=== PATIENT | female | born 1980 | race Caucasian/White ===

== ENCOUNTER 2019-09-03 14:28 | Inpatient (IN) | payer MEDICAID ==
[~2019-09-03] VITALS: Ht 160 cm; Wt 95.0 kg
[~2019-09-03 14:28] MED LIST: BIOT1TAB2 PO; CYAN500T63 PO; GABA-341 PO; LEVO25TA2 PO; NORCO10T PO; PYRI250T8 PO; VENL75CA61 PO
[2019-09-03 14:58] LABS: CLARITY,URINE CLOUDY (Clear); COLOR,URINE YELLOW (Yellow); GLUCOSE, URINE NEGATIVE (Neg); KETONES,URINE 15 mg/dl (Neg); LEUKOCYTE ESTERASE ,URINE TRACE (Neg); NITRITES, URINE POSITIVE (Neg); OCCULT BLOOD,URINE LARGE (Neg); PROTEIN,URINE NEGATIVE (Neg); URINE HCG NEGATIVE (NEG)
[2019-09-03 14:59] LABS: UA COLLECTION TYPE CLN CATCH MIDSTREAM
[2019-09-03 15:03] LABS: BACTERIA,URINE 2+ /HPF (Neg); MUCUS STRANDS FEW /LPF (Neg); RBC,URINE 50-100 /HPF (0-2); SQUAMOUS EPITHELIAL CELL,UR MANY /LPF (FEW)
[2019-09-03 15:53] LABS: BASOPHILS % (AUTO) 0.3 % (0-1); EOSINOPHILS # (AUTO) 0.1 X10'3 (0-0.9); HEMATOCRIT 44.8 % (35.0-45.0); HEMOGLOBIN 15.6 g/dl (12.0-16.0); LYMPHOCYTES # (AUTO) 2.2 X10'3 (1.1-4.8); MEAN CORPUSCULAR HEMOGLOBIN 32.5 PG (27.0-31.0); MEAN CORPUSCULAR HGB CONC 34.8 g/dL (33.0-36.5); MEAN CORPUSCULAR VOLUME 93.2 FL (78-98); MEAN PLATELET VOLUME 7.7 FL (7.4-10.4); MONOCYTES # (AUTO) 0.5 X10'3 (0-0.9); MONOCYTES % (AUTO) 4.9 % (2-12); NEUTROPHILS # (AUTO) 8.2 X10'3 (1.8-7.7); NEUTROPHILS % (AUTO) 73.8 % (42-75); PLATELET COUNT 270 X10'3 (140-440); RED BLOOD COUNT 4.81 X10'6 (4.20-5.60); RED CELL DISTRIBUTION WIDTH 13.1 % (11.5-14.5); WHITE BLOOD COUNT 11.1 X10'3 (4.5-11.0)
[2019-09-03 16:06] LABS: ALANINE AMINOTRANSFERASE 23 U/L (12-78); ALBUMIN 3.9 G/DL (3.4-5.0); ALKALINE PHOSPHATASE 71 IU/L (46-116); ANION GAP 5 (8-16); ASPARTATE AMINO TRANSFERASE 16 U/L (10-37); BILIRUBIN,TOTAL 0.8 MG/DL (0.1-1.0); BLOOD UREA NITROGEN 10 MG/DL (7-18); BUN/CREATININE RATIO 12.7 (6.6-38.0); CALCIUM 8.7 MG/DL (8.5-10.1); CHLORIDE 102 MMOL/L (99-107); CREATININE 0.79 MG/DL (0.40-0.90); GLUCOSE 82 MG/DL (70-104); LIPASE 109 U/L (73-393); POTASSIUM 3.6 MMOL/L (3.5-5.1); SODIUM 137 MMOL/L (135-145); TOTAL PROTEIN 7.7 G/DL (6.4-8.2); eGFR 82 ML/MIN
[2019-09-03] MEDS ORDERED: morphine 4 MG/ML inj SYRINge IV ONE (16:20)
[2019-09-03] MEDS ORDERED: normal saline 1000ML IV soln IVB ONE (16:20)
[2019-09-03] MEDS ORDERED: CefTRIAXone 2gm/D5W 50ml 50 ML IV ONE (16:20)
[2019-09-03] MEDS ORDERED: ondansetron/PF 4mg/2ml inj IV ONE (16:20)
--- NOTE | 2019-09-03 17:01 | NUR ---
assisting RN with pt care, pt is resting quietly on gurney, waiting for bed assignment
--- NOTE | 2019-09-03 17:36 | NUR ---
RELIEVING RN FOR LUNCH, PT IS RESTING QUIETLY ON GURNEY, SAID RUQ ABD PAIN IS DOWN TO 6/10, RESP EVEN AND UNLABORED, SKIN P/W/D
[2019-09-03] MEDS ORDERED: potassium CL 10mEq/100ml bag 100 ML IV PRN ×2 (18:10)
[2019-09-03] MEDS ORDERED: magnesium 2GM in 50ml NS 50 ML IV PRN (18:10)
[2019-09-03] MEDS ORDERED: mag hydrox/Alum hydrox/simeth 30ml oral suspension PO PRN (18:10)
[2019-09-03] MEDS ORDERED: diphenhydrAMINE 25mg capsule PO PRN (18:10)
[2019-09-03] MEDS ORDERED: magnesium 4gm in 100ml NS 100 ML IV PRN (18:10)
[2019-09-03] MEDS ORDERED: acetaminophen 325mg tablet PO PRN ×2 (18:10)
[2019-09-03] MEDS ORDERED: acetaminophen 650mg rectal suppository RC PRN (18:10)
[2019-09-03] MEDS ORDERED: bisacodyl 10mg suppository rectal RC PRN (18:10)
[2019-09-03] MEDS ORDERED: magnesium hydroxide 30ml (MOM) UD suspension PO PRN (18:10)
[2019-09-03] MEDS ORDERED: HYDROmorphone inj. 0.5 MG/0.5 ML DISP.SYRIN IV PRN (18:10)
[2019-09-03] MEDS ORDERED: potassium Cl 20 mEq SR tablet PO PRN (18:10)
[2019-09-03] MEDS ORDERED: diphenhydrAMINE 50 mg/ml inj IV PRN (18:10)
[2019-09-03] MEDS ORDERED: magnesium Cl slow-release 64mg tablet PO PRN (18:10)
[2019-09-03] MEDS: HYDROmorphone 1 mg/ml syringe IV PRN ×2 (19:03→23:14)
[2019-09-03] MEDS: normal saline 1000ml 1,000 ML IV SCH (19:03)
[2019-09-03] MEDS: K and/or MAG REPLACEMENT MC SCH (19:03)
[2019-09-03] MEDS: ondansetron/PF 4mg/2ml inj IV PRN (19:08)
[2019-09-03 19:09] LABS: PARTIAL THROMBOPLASTIN TIME 27 SECONDS (22-32)
--- NOTE | 2019-09-03 19:34 | NUR ---
PT HAS FAMILY MEMBER AT BEDSIDE. PT REPORTED 9 OUT OF 10 PAIN TO UPPER RIGHT ABD AND STATES THE OPAIN MEDS GIVEN EARLIER HAVE WORK OFF. GIVEN DILAUDID 1 MG IV AND ZOFRAN 4 MG IV. NS AT 100 INFUSING FOR MIVF. GIVEN JELLO AND JUICE, OK FOR CLEARS, WILL BE NPO AT MS. AWAITING IPA. VSS.
[2019-09-03] MEDS ORDERED: NO HOME MEDS (19:42)
[2019-09-03] MEDS: docusate sod 100mg capsule PO SCH (20:00)
--- NOTE | 2019-09-03 21:34 | NUR ---
Patient in room [facility] 340. I have received report from Patti, ED RN and had the opportunity to ask questions and assume patient care.
[2019-09-03 22:15] VITALS: BP 115/63
[2019-09-04] VITALS (20 sets, daily range): BP systolic 93–138; BP diastolic 49–99
[2019-09-04] MEDS: temazepam 15mg capsule PO PRN ×2 (00:47→20:54)
[2019-09-04] MEDS: HYDROmorphone 1 mg/ml syringe IV PRN ×4 (03:18→17:13)
[2019-09-04] MEDS: ondansetron/PF 4mg/2ml inj IV PRN ×3 (03:23→19:29)
[2019-09-04] MEDS: normal saline 1000ml 1,000 ML IV SCH ×3 (05:24→17:10)
--- NOTE | 2019-09-04 06:05 | NUR ---
Patient in room [facility] 340. I have received report from MISA Mckeon and had the opportunity to ask questions and assume patient care.
[2019-09-04 06:24] LABS: BASOPHILS % (AUTO) 0.2 % (0-1); EOSINOPHILS # (AUTO) 0.2 X10'3 (0-0.9); EOSINOPHILS % (AUTO) 2.3 % (0-6); HEMATOCRIT 37.7 % (35.0-45.0); HEMOGLOBIN 13.1 g/dl (12.0-16.0); LYMPHOCYTES # (AUTO) 2.9 X10'3 (1.1-4.8); LYMPHOCYTES % (AUTO) 42.8 % (21-51); MEAN CORPUSCULAR HGB CONC 34.8 g/dL (33.0-36.5); MEAN CORPUSCULAR VOLUME 94.8 FL (78-98); MEAN PLATELET VOLUME 7.9 FL (7.4-10.4); MONOCYTES # (AUTO) 0.7 X10'3 (0-0.9); NEUTROPHILS % (AUTO) 44.7 % (42-75); PLATELET COUNT 214 X10'3 (140-440); RED BLOOD COUNT 3.97 X10'6 (4.20-5.60); RED CELL DISTRIBUTION WIDTH 13.3 % (11.5-14.5); WHITE BLOOD COUNT 6.7 X10'3 (4.5-11.0)
[2019-09-04 06:45] LABS: ALANINE AMINOTRANSFERASE 18 U/L (12-78); ALBUMIN/GLOBULIN RATIO 0.9 (1.1-1.5); ALKALINE PHOSPHATASE 53 IU/L (46-116); ANION GAP 6 (8-16); ASPARTATE AMINO TRANSFERASE 11 U/L (10-37); BILIRUBIN,TOTAL 0.3 MG/DL (0.1-1.0); BLOOD UREA NITROGEN 7 MG/DL (7-18); BUN/CREATININE RATIO 11.1 (6.6-38.0); CALCIUM 7.5 MG/DL (8.5-10.1); CHLORIDE 106 MMOL/L (99-107); CHOL/HDL RATIO 2.2 (0.00-4.99); CHOLESTEROL 114 MG/DL (0-200); CREATININE 0.63 MG/DL (0.40-0.90); GLUCOSE 82 MG/DL (70-104); HDL CHOLESTEROL 51 MG/DL (35-60); LDL CHOLESTEROL 52 MG/DL (50-100); MAGNESIUM 1.7 MG/DL (1.5-2.4); POTASSIUM 3.7 MMOL/L (3.5-5.1); SODIUM 140 MMOL/L (135-145); TOTAL CARBON DIOXIDE 27.8 MMOL/L (24-32); TOTAL PROTEIN 6.2 G/DL (6.4-8.2); TRIGLYCERIDES 61 MG/DL (20-135); eGFR > 90 ML/MIN
--- NOTE | 2019-09-04 06:58 | NUR ---
Problems reprioritized. Patient report given, questions answered & plan of care reviewed with MISA Carver.
[2019-09-04] MEDS: K and/or MAG REPLACEMENT MC SCH ×2 (07:04→20:00)
[2019-09-04] MEDS ORDERED: ceFAZolin 1000mg inj ONE (07:18)
[2019-09-04] MEDS ORDERED: BUPIVAcaine/PF 2.5 mg/ml (0.25%) 30ml vial ONE (07:18)
[2019-09-04] MEDS: ceFAZolin 1GM/D5W- ADD-VANTAGE 50 ML IV SCH (07:29)
[2019-09-04] MEDS ORDERED: LIDOcaine 1% 30ml preserv. free vial ONE (07:36)
--- NOTE | 2019-09-04 07:50 | NUR ---
Pt off the floor to OR
[2019-09-04] MEDS ORDERED: fentaNYL/PF 50MCG/1 ML 2ML syringe ONE ×2 (07:56→08:32)
[2019-09-04] MEDS ORDERED: midazolam 2 mg/2 ml injection ONE (07:56)
[2019-09-04] MEDS ORDERED: sevoflurane 250ml liquid IH ONE (07:57)
[2019-09-04] MEDS: CefTRIAXone/D5W-Rocephin 1gm 50 ML IV SCH (08:00)
[2019-09-04] MEDS: docusate sod 100mg capsule PO SCH ×2 (08:00→19:29)
[2019-09-04] MEDS ORDERED: ringers solution, lacted 1,000 ML IV SCH (08:26)
[2019-09-04] MEDS ORDERED: proCHLORperazine 10 MG/2 ml inj IV PRN (08:30)
[2019-09-04] MEDS ORDERED: ondansetron/PF 4mg/2ml inj IV PRN (08:30)
[2019-09-04] MEDS ORDERED: morphine 4 MG/ML inj SYRINge IV PRN ×2 (08:30)
[2019-09-04] MEDS ORDERED: meperidine/PF 25mg/ml syringe IV PRN ×3 (08:30)
[2019-09-04] MEDS ORDERED: dexamethasone sod phosphate 4mg/ml inj. ONE (08:34)
[2019-09-04] MEDS ORDERED: propofol inj 20 ML IV ONE (08:34)
[2019-09-04] MEDS ORDERED: neostigmine methylsulfate 1 MG/ML 10ml vial ONE (08:34)
[2019-09-04] MEDS ORDERED: LIDOcaine 2% (20mg/ml) 5ml vial ONE (08:34)
[2019-09-04] MEDS ORDERED: rocuronium 10mg/ml inj IV ONE (08:34)
[2019-09-04] MEDS ORDERED: ondansetron/PF 4mg/2ml inj ONE (08:34)
[2019-09-04] MEDS ORDERED: glycopyrrolate 0.2mg/ml inj ONE (08:34)
[2019-09-04] MEDS ORDERED: meperidine/PF 50mg/ml syringe ONE (09:04)
--- NOTE | 2019-09-04 09:05 | NUR ---
Received from OR via BED, accompanied by Anesthesiologist BRANDAN and report given by Anesthesiolgist. PT DROWSY, OXYGENATING WELL ON 10 LPM O2 VIA MASK, NO RESP DISTRESS NOTED. C/O NAUSEA, MEDICATED WITH 2.5 MG OF IV COMPAZINE, PER ANESTHESIA ORDERS. PT WAS GIVEN DEMEROL BY ANESTHESIA, RECD 30 MG OF TORADOL IV. 4 LG BANDAIDS TO ABD TROCAR SITES, CDI. VSS.
[2019-09-04] MEDS ORDERED: ketorolac trometh. 30mg/ml inj. ONE (09:14)
[2019-09-04] MEDS ORDERED: HYDROcodone/acetaminophen 5mg/325mg tablet PO PRN (09:15)
--- NOTE | 2019-09-04 10:00 | NUR ---
Pt returned to room 340A from PACU
--- NOTE | 2019-09-04 10:05 | NUR ---
Report called to receiving nurse. Transferred via BED Belongings IN PT ROOM. PAIN LEVEL IS SLOWLY TRENDING DOWN AFTER MEDS GIVEN IN PACU. EPISODIC NAUSEA, TOLERATING A FEW ICE CHIPS. VSS. ENCOURAGED PT TO COUGH AND DB. ADVISED HER TO AMBULATE SOON SHE IS ABLE THIS WILL HELP ALOT WITH HER PAIN, SHE AGREES TO PLAN. TRNASFERRED BACK TO 3 SURG IN STABLE CONDITION. Special Issues communicated to receiving nurse.
--- NOTE | 2019-09-04 18:05 | NUR ---
Problems reprioritized. Patient report given, questions answered & plan of care reviewed with Azul Lee RN.
--- NOTE | 2019-09-04 18:10 | NUR ---
Patient in room [facility] 340. I have received report from MISA Carver and had the opportunity to ask questions and assume patient care.
[2019-09-04] MEDS: HYDROcodone/acetaminophen 10/325mg tab PO PRN (19:31)
[2019-09-04] MEDS: nicotine 14mg patch - 24hr TD SCH (21:52)
[2019-09-05] VITALS: BP 106/58
[2019-09-05] MEDS: HYDROcodone/acetaminophen 10/325mg tab PO PRN ×3 (02:18→10:08)
[2019-09-05] MEDS: normal saline 1000ml 1,000 ML IV SCH (02:32)
[2019-09-05] MEDS: HYDROmorphone 1 mg/ml syringe IV PRN (03:11)
--- NOTE | 2019-09-05 06:05 | NUR ---
Patient in room [facility] 340. I have received report from Azul Lee RN and had the opportunity to ask questions and assume patient care.
--- NOTE | 2019-09-05 06:19 | NUR ---
Problems reprioritized. Patient report given, questions answered & plan of care reviewed with MISA Carver.
[2019-09-05 06:30] VITALS: BP 115/71
[2019-09-05 06:41] LABS: BASOPHILS # (AUTO) 0.1 X10'3 (0-0.2); BASOPHILS % (AUTO) 0.5 % (0-1); EOSINOPHILS % (AUTO) 0.4 % (0-6); HEMOGLOBIN 12.7 g/dl (12.0-16.0); LYMPHOCYTES # (AUTO) 2.2 X10'3 (1.1-4.8); LYMPHOCYTES % (AUTO) 22.1 % (21-51); MEAN CORPUSCULAR HGB CONC 35.3 g/dL (33.0-36.5); MEAN CORPUSCULAR VOLUME 93.7 FL (78-98); MEAN PLATELET VOLUME 8.5 FL (7.4-10.4); MONOCYTES # (AUTO) 0.5 X10'3 (0-0.9); MONOCYTES % (AUTO) 5.3 % (2-12); NEUTROPHILS # (AUTO) 7.2 X10'3 (1.8-7.7); NEUTROPHILS % (AUTO) 71.7 % (42-75); PLATELET COUNT 219 X10'3 (140-440); RED BLOOD COUNT 3.85 X10'6 (4.20-5.60); RED CELL DISTRIBUTION WIDTH 13.2 % (11.5-14.5)
[2019-09-05 07:00] LABS: ALANINE AMINOTRANSFERASE 26 U/L (12-78); ALBUMIN 2.7 G/DL (3.4-5.0); ALBUMIN/GLOBULIN RATIO 0.9 (1.1-1.5); ALKALINE PHOSPHATASE 55 IU/L (46-116); ANION GAP 8 (8-16); ASPARTATE AMINO TRANSFERASE 23 U/L (10-37); BILIRUBIN,TOTAL 0.3 MG/DL (0.1-1.0); BLOOD UREA NITROGEN 4 MG/DL (7-18); BUN/CREATININE RATIO 6.9 (6.6-38.0); CALCIUM 7.6 MG/DL (8.5-10.1); CHLORIDE 108 MMOL/L (99-107); CREATININE 0.58 MG/DL (0.40-0.90); GLUCOSE 94 MG/DL (70-104); MAGNESIUM 1.6 MG/DL (1.5-2.4); POTASSIUM 3.2 MMOL/L (3.5-5.1); SODIUM 139 MMOL/L (135-145); TOTAL CARBON DIOXIDE 23.4 MMOL/L (24-32); TOTAL PROTEIN 5.7 G/DL (6.4-8.2); eGFR > 90 ML/MIN
[2019-09-05] MEDS: ceFAZolin 1GM/D5W- ADD-VANTAGE 50 ML IV SCH (07:05)
[2019-09-05] MEDS: docusate sod 100mg capsule PO SCH (07:05)
[2019-09-05] MEDS: nicotine 14mg patch - 24hr TD SCH (07:05)
[2019-09-05] MEDS: potassium Cl 20 mEq SR tablet PO PRN ×2 (07:15→10:47)
[2019-09-05] MEDS: CefTRIAXone/D5W-Rocephin 1gm 50 ML IV SCH (08:05)
[2019-09-05] MEDS: K and/or MAG REPLACEMENT MC SCH (08:05)
[2019-09-05 11:00] VITALS: BP 120/66
[2019-09-05] MEDS ORDERED: HYDR-4353 PO (11:14)
[2019-09-05] MEDS: ondansetron/PF 4mg/2ml inj IV PRN (11:19)
--- NOTE | 2019-09-05 13:20 | NUR ---
DC inst provided to pt. IV DC'd, tip intact. All belongings sent w/pt. WC to front lobby.
== END 2019-09-05 13:29 | disposition home or self-care (01) | DRG 263 ==
LOC: ER 14:29 → CANBEDREQ 16:46 → ED HOLD 18:06 → SUR 3N 21:59
PROVIDERS: ADMIT Family Medicine; ATTEND Family Medicine
PROC: 0FT44ZZ Resection of Gallbladder, Percutaneous Endoscopic Approach (ICD-10-PCS; principal; 2019-09-04 07:57)
DX: K80.12 Calculus of gallbladder with acute and chronic cholecystitis without obstruction (principal); E03.9 Hypothyroidism, unspecified; E87.6 Hypokalemia; F17.200 Nicotine dependence, unspecified, uncomplicated; K44.9 Diaphragmatic hernia without obstruction or gangrene; N63.0 Unspecified lump in unspecified breast; Z80.3 Family history of malignant neoplasm of breast; Z80.49 Family history of malignant neoplasm of other genital organs; Z82.49 Family history of ischemic heart disease and other diseases of the circulatory system; Z85.41 Personal history of malignant neoplasm of cervix uteri; Z92.3 Personal history of irradiation; Z88.1 Allergy status to other antibiotic agents; Z88.8 Allergy status to other drugs, medicaments and biological substances; Z79.899 Other long term (current) drug therapy
CPT/HCPCS: 36415; 80053; 80061; 81001; 81025; 82948; 83690; 83735; 85025; 85610; 85730; 87081; 96365; 96375; 99285; A4215; A4618; A7000; G0378; J0690; J0696; J0780; J1100; J1170; J1885; J2001; J2175; J2250; J2270; J2405; J2704; J2710; J3010; J3490; J7030; J7120

== ENCOUNTER 2019-12-08 05:30 | Day surgery (SDC) | payer MEDICAID ==
[2019-12-05 16:31] LABS: BASOPHILS % (AUTO) 0.3 % (0-1); EOSINOPHILS # (AUTO) 0.1 X10'3 (0-0.9); EOSINOPHILS % (AUTO) 1.2 % (0-6); LYMPHOCYTES # (AUTO) 3.8 X10'3 (1.1-4.8); LYMPHOCYTES % (AUTO) 33.6 % (21-51); MEAN CORPUSCULAR HEMOGLOBIN 31.5 PG (27.0-31.0); MEAN CORPUSCULAR HGB CONC 34.1 g/dL (33.0-36.5); MEAN CORPUSCULAR VOLUME 92.3 FL (78-98); MEAN PLATELET VOLUME 8.1 FL (7.4-10.4); MONOCYTES # (AUTO) 0.6 X10'3 (0-0.9); MONOCYTES % (AUTO) 5.2 % (2-12); NEUTROPHILS # (AUTO) 6.7 X10'3 (1.8-7.7); NEUTROPHILS % (AUTO) 59.7 % (42-75); PRE OP HEMATOCRIT 43.7 % (35.0-45.0); PRE OP HEMOGLOBIN 14.9 g/dL (12.0-16.0); PRE OP PLATELET COUNT 288 X10'3 (140-440); RED BLOOD COUNT 4.73 X10'6 (4.20-5.60); RED CELL DISTRIBUTION WIDTH 13.1 % (11.5-14.5)
[2019-12-05 16:32] LABS: CLARITY,URINE SLIGHTLY CLOUDY (Clear); COLOR,URINE YELLOW (Yellow); GLUCOSE, URINE NEGATIVE (Neg); KETONES,URINE TRACE mg/dl (Neg); LEUKOCYTE ESTERASE ,URINE NEGATIVE (Neg); NITRITES, URINE NEGATIVE (Neg); OCCULT BLOOD,URINE LARGE (Neg); PH,URINE 5.5 (4.8-8.0); PROTEIN,URINE NEGATIVE (Neg); UROBILINOGEN,URINE 0.2 E.U/dL (0.2-1.0)
[2019-12-05 16:34] LABS: UA COLLECTION TYPE CLN CATCH MIDSTREAM
[2019-12-05 16:40] LABS: MUCUS STRANDS MANY /LPF (Neg); SQUAMOUS EPITHELIAL CELL,UR MANY /LPF (FEW)
[2019-12-05 16:42] LABS: BACTERIA,URINE 2+ /HPF (Neg); WBC,URINE 0-4 /HPF (0-4)
[2019-12-05 16:42] LABS: PRE OP PROTIME 10.1 SECONDS (9.0-12.0)
[2019-12-05 16:43] LABS: ALKALINE PHOSPHATASE 69 IU/L (46-116); BLOOD UREA NITROGEN 12 MG/DL (7-18); BUN/CREATININE RATIO 16.7 (6.6-38.0); CALCIUM 9.1 MG/DL (8.5-10.1); CHLORIDE 106 MMOL/L (99-107); CREATININE 0.72 MG/DL (0.40-0.90); PRE OP ALT 16 U/L (30-65); PRE OP ANION GAP 8 (8-16); PRE OP AST 18 U/L (10-37); PRE OP BILIRUB, TOTAL 0.5 MG/DL (0.0-1.0); PRE OP GLUCOSE 96 MG/DL (70-104); PRE OP POTASSIUM 3.9 MMOL/L (3.4-5.1); PRE OP SODIUM 141 MMOL/L (135-145); TOTAL CARBON DIOXIDE 27.5 MMOL/L (24-32); TOTAL PROTEIN 8.1 G/DL (6.4-8.2); eGFR > 90 ML/MIN
[2019-12-05 17:05] LABS: HCG SERUM QL NEGATIVE
[2019-12-08] VITALS (27 sets, daily range): BP systolic 96–138; BP diastolic 51–82
[~2019-12-08] VITALS: Ht 160 cm; Wt 102.0 kg
[~2019-12-08 05:30] MED LIST changes: -BIOT1TAB2 PO; -CYAN500T63 PO; -GABA-341 PO; +HYDR-4353 PO; -LEVO25TA2 PO; -NORCO10T PO; -PYRI250T8 PO; -VENL75CA61 PO; +ceFOXitin 2 GM ADDvantage bag 100 ML IV ONE; +famotidine 20mg tablet PO ONE
[2019-12-08] MEDS: ringers solution, lacted 1,000 ML IV SCH ×5 (06:30→22:10)
[2019-12-08] MEDS ORDERED: NO HOME MEDS (06:34)
[2019-12-08] MEDS ORDERED: clindamycin phosphate 40gm vag cream ONE (06:47)
[2019-12-08] MEDS ORDERED: vasoPRESSIN 20 units/ml inj. ONE (06:47)
[2019-12-08] MEDS ORDERED: BUPIVAcaine/PF 2.5 mg/ml (0.25%) 30ml vial ONE (06:58)
[2019-12-08] MEDS ORDERED: neomy sulf/polymyxin B sulf. GU irrigation 1ml amp IR ONE (07:14)
[2019-12-08] MEDS ORDERED: rocuronium 10mg/ml inj IV ONE (07:21)
[2019-12-08] MEDS ORDERED: midazolam 2 mg/2 ml injection ONE (07:21)
[2019-12-08] MEDS ORDERED: fentaNYL /PF 50mcg/ml 5ml ampule ONE (07:21)
[2019-12-08] MEDS ORDERED: propofol inj 20 ML IV ONE (07:21)
[2019-12-08] MEDS ORDERED: ringers solution, lacted 1,000 ML IV SCH (08:28)
[2019-12-08] MEDS ORDERED: proCHLORperazine 10 MG/2 ml inj IV PRN (08:30)
[2019-12-08] MEDS ORDERED: meperidine/PF 25mg/ml syringe IV PRN ×2 (08:30)
[2019-12-08] MEDS ORDERED: morphine 2 MG/ML inj. syringe IV PRN (08:30)
[2019-12-08] MEDS ORDERED: ondansetron/PF 4mg/2ml inj IV PRN ×2 (08:30→09:10)
[2019-12-08] MEDS ORDERED: acetaminophen 1,000mg/100ml IV 100 ML IV ONE (08:54)
[2019-12-08] MEDS ORDERED: dexamethasone sod phosphate 4mg/ml inj. ONE (08:54)
[2019-12-08] MEDS ORDERED: ondansetron/PF 4mg/2ml inj ONE (08:55)
[2019-12-08] MEDS ORDERED: neostigmine methylsulfate 1 MG/ML 10ml vial ONE (09:08)
[2019-12-08] MEDS ORDERED: glycopyrrolate 0.2mg/ml inj ONE (09:08)
[2019-12-08] MEDS ORDERED: LORazepam 2 mg/ml vial IV PRN (09:10)
[2019-12-08] MEDS ORDERED: metoclopramide 5 mg/ml inj IV PRN (09:10)
[2019-12-08] MEDS ORDERED: normal saline 500ml IV soln 500 ML IV PRN (09:10)
[2019-12-08] MEDS ORDERED: magnesium hydroxide 30ml (MOM) UD suspension PO PRN (09:10)
[2019-12-08] MEDS ORDERED: diphenhydrAMINE 50 mg/ml inj IV PRN (09:10)
[2019-12-08] MEDS ORDERED: HYDROcodone/acetaminophen 10/325mg tab PO PRN ×2 (09:10)
[2019-12-08] MEDS ORDERED: temazepam 15mg capsule PO PRN (09:10)
--- NOTE | 2019-12-08 09:26 | NUR ---
Received from OR via BED, accompanied by Anesthesiologist DR DOOLEY and report given by Anesthesiologist. PT DROWSY, APPROPRIATE, C/O ABDOMINAL PAIN, ABDOMEN W/2 LAP SITES W/DERMABOND, CDI, AIDEE PAD IN PLACE CDI, WHALEN CATHETER TO GRAVITY DRAINAGE W/YELLOW URINE IN DRAINAGE TUBE. Addendum: 12/08/19 at 1003 by Estella Mckee RN Amended: Links added.
[2019-12-08] MEDS: meperidine/PF 25mg/ml syringe IV PRN ×4 (09:36→11:03)
[2019-12-08] MEDS: ketorolac trometh. 30mg/ml inj. IV PRN ×4 (09:39→22:10)
[2019-12-08] MEDS: morphine 4 MG/ML inj SYRINge IV PRN ×3 (10:30→11:40)
--- NOTE | 2019-12-08 10:55 | NUR ---
PT CONTINUES C/O LOWER ABD PAIN, STATES SHE FEELS LIKE SHE NEEDS TO PEE, BLADDER SCANNED FOR 2 ML, UNABLE TO PALPATE BLADDER, 50 ML IN WHALEN DRAINAGE BAG. CALL INTO DR OLIVA, UPDATED, ORDERS FOR A STANDARD DILAUDID CADD. Addendum: 12/08/19 at 1057 by Estella Mckee RN Amended: Links added.
[2019-12-08] MEDS: HYDROmorphone/NS 1 mg/ml CADD 50 ML IV SCH ×8 (11:00→23:00)
--- NOTE | 2019-12-08 12:14 | NUR ---
Patient in room . I have received report from Estella BYNUM in recovery room and had the opportunity to ask questions and assume patient care. Estella stated pt is very painful and she is waiting for a CADD pump for pt. Also pt is having trouble voiding even though she has a Gonzalez cath.
--- NOTE | 2019-12-08 12:16 | NUR ---
PT PAIN SLOWLY IMPROVING, Report called to receiving nurse. Transferred via BED, A BAG OF PERSONAL Belongings SENT W/PT TO ROOM 346A, S/O AT BEDSIDE, RECEIVING RN NOTIFIED OF PTS ARRIVAL. Special Issues communicated to receiving nurse. YES. Addendum: 12/08/19 at 1229 by Estella Mckee RN Amended: Links added.
--- NOTE | 2019-12-08 12:30 | NUR ---
Received Pt via dami bed. Pt A & O x4, pt states she is very painful, feeling like her bladder is full and cannot urinate. Pt has out put of 50mls in Gonzalez bag. Pt accompanied by . Belongings on pt's closet.
[2019-12-08] MEDS: nicotine 14mg patch - 24hr TD SCH (13:35)
[2019-12-08] MEDS: simethicone 80mg chew tab PO SCH ×2 (13:35→19:34)
--- NOTE | 2019-12-08 18:16 | NUR ---
Problems reprioritized. Patient report given, questions answered & plan of care reviewed with Corinna Weinstein Rn.
--- NOTE | 2019-12-08 18:30 | NUR ---
Patient in room [facility] 346. I have received report from EDGAR BYNUM and had the opportunity to ask questions and assume patient care.
[2019-12-08] MEDS: docusate sod 100mg capsule PO SCH (19:34)
[2019-12-09] VITALS: BP 96/45
[2019-12-09] MEDS: HYDROmorphone/NS 1 mg/ml CADD 50 ML IV SCH ×4 (01:00→07:00)
[2019-12-09 05:21] LABS: BASOPHILS # (AUTO) 0.1 X10'3 (0-0.2); BASOPHILS % (AUTO) 0.4 % (0-1); EOSINOPHILS % (AUTO) 0.1 % (0-6); HEMATOCRIT 38.4 % (35.0-45.0); HEMOGLOBIN 13.3 g/dl (12.0-16.0); LYMPHOCYTES % (AUTO) 19.8 % (21-51); MEAN CORPUSCULAR HEMOGLOBIN 32.2 PG (27.0-31.0); MEAN CORPUSCULAR HGB CONC 34.5 g/dL (33.0-36.5); MEAN CORPUSCULAR VOLUME 93.4 FL (78-98); MEAN PLATELET VOLUME 8.4 FL (7.4-10.4); MONOCYTES # (AUTO) 0.8 X10'3 (0-0.9); MONOCYTES % (AUTO) 5.2 % (2-12); NEUTROPHILS # (AUTO) 11.4 X10'3 (1.8-7.7); NEUTROPHILS % (AUTO) 74.5 % (42-75); PLATELET COUNT 256 X10'3 (140-440); RED BLOOD COUNT 4.11 X10'6 (4.20-5.60); RED CELL DISTRIBUTION WIDTH 13.3 % (11.5-14.5); WHITE BLOOD COUNT 15.2 X10'3 (4.5-11.0)
[2019-12-09 05:29] LABS: ANION GAP 8 (8-16); BLOOD UREA NITROGEN 5 MG/DL (7-18); BUN/CREATININE RATIO 8.8 (6.6-38.0); CALCIUM 8.3 MG/DL (8.5-10.1); CHLORIDE 106 MMOL/L (99-107); CREATININE 0.57 MG/DL (0.40-0.90); GLUCOSE 97 MG/DL (70-104); POTASSIUM 3.7 MMOL/L (3.5-5.1); SODIUM 139 MMOL/L (135-145); TOTAL CARBON DIOXIDE 25.3 MMOL/L (24-32); eGFR > 90 ML/MIN
[2019-12-09] MEDS: ringers solution, lacted 1,000 ML IV SCH (05:29)
--- NOTE | 2019-12-09 06:07 | NUR ---
Problems reprioritized. Patient report given, questions answered & plan of care reviewed with LUIS BYNUM.
--- NOTE | 2019-12-09 06:07 | NUR ---
Patient in room [facility] 346. I have received report from Corinna Weinstein RN and had the opportunity to ask questions and assume patient care.
[2019-12-09 06:55] VITALS: BP 97/48
[2019-12-09] MEDS ORDERED: CADD PCA waste documentation MC SCH (07:15)
[2019-12-09] MEDS ORDERED: enoxaparin 40mg/0.4ml syringe SQ SCH (08:00)
[2019-12-09] MEDS: nicotine 14mg patch - 24hr TD SCH (08:00)
[2019-12-09] MEDS: docusate sod 100mg capsule PO SCH (08:36)
[2019-12-09] MEDS: simethicone 80mg chew tab PO SCH (08:36)
[2019-12-09] MEDS: ketorolac trometh. 30mg/ml inj. IV PRN (08:36)
--- NOTE | 2019-12-09 11:21 | NUR ---
Patient was complaining of lower abdominal pain that only had minimal relief with [place]. Patient was bladder scanned to ensure that her bladder wasn't too full causing the pain. The Bladder scan only showed 50ml of urine in her bladder.
[2019-12-09 11:56] VITALS: BP 98/43
--- NOTE | 2019-12-09 12:04 | NUR ---
Patient discharged home via significant other and taken from unit via wheelchair with x1 staff. Patient alert and oriented at time of discharge and in slight discomfort. Patient stated feeling well enough to leave. PIV removed with cannula intact. Patient and significant other were both informed of discharge instructions and stated an understanding of this. Both stated that much of the instructions were discussed previously with Dr. Lauren. Patient also stated that she was given a prescription for medications via Dr. Lauren's office and had already picked up the medications.
== END 2019-12-09 12:00 | disposition home or self-care (01) ==
LOC: PAS 05:30 → SUR 3N 09:10 → PAS 12-09 12:00
PROVIDERS: ATTEND Obstetrics & Gynecology Obstetrics
DX: N92.1 Excessive and frequent menstruation with irregular cycle (principal); N80.0 Endometriosis of uterus; N88.8 Other specified noninflammatory disorders of cervix uteri; D25.9 Leiomyoma of uterus, unspecified; E66.9 Obesity, unspecified; Z68.39 Body mass index [BMI] 39.0-39.9, adult; F17.290 Nicotine dependence, other tobacco product, uncomplicated; Z98.51 Tubal ligation status; Z98.890 Other specified postprocedural states; Z88.1 Allergy status to other antibiotic agents; F41.9 Anxiety disorder, unspecified; M19.90 Unspecified osteoarthritis, unspecified site; Z79.899 Other long term (current) drug therapy; Z83.3 Family history of diabetes mellitus; Z80.42 Family history of malignant neoplasm of prostate; Z82.49 Family history of ischemic heart disease and other diseases of the circulatory system; Z80.49 Family history of malignant neoplasm of other genital organs
CPT/HCPCS: 36415; 58552; 71046; 80048; 80053; 81001; 82948; 84703; 85025; 85610; 85730; 86885; 86900; 86901; 87081; J0131; J0694; J1100; J1170; J1885; J2060; J2175; J2250; J2270; J2405; J2704; J2710; J3010; J3490; J7120; A4314; A4618; A7000; G0378; J1650

== ENCOUNTER 2022-11-11 13:14 | Emergency (ER) | payer MEDICAID ==
[~2022-11-11] VITALS: Ht 160 cm; Wt 90.9 kg
[~2022-11-11 13:14] MED LIST changes: -HYDR-4353 PO; +NO HOME MEDS; -ceFOXitin 2 GM ADDvantage bag 100 ML IV ONE; -famotidine 20mg tablet PO ONE
[2022-11-11 14:06] VITALS: BP 124/65
[2022-11-11] MEDS ORDERED: HYDROcodone/acetaminophen 10/325mg tab PO ONE (14:15)
--- NOTE | 2022-11-11 14:53 | NUR ---
Pain med verified by Maria Eugenia BYNUM. Scanner not working in room.
[2022-11-11] MEDS ORDERED: LIDOcaine Viscous 15ml cup TP ONE (15:00)
[2022-11-11] MEDS ORDERED: HYDR-3972 PO (15:27)
[2022-11-11] MEDS ORDERED: TETanus/Pertussis (Acell)/Diphther VAC/PF (Tdap-Adult) 0.5ml syringe IMVAC ONE (15:30)
== END 2022-11-11 15:44 | disposition home or self-care (01) ==
LOC: ER 13:14
DX: S61.101A Unspecified open wound of right thumb with damage to nail, initial encounter (principal); Z90.49 Acquired absence of other specified parts of digestive tract; Z88.1 Allergy status to other antibiotic agents; Z88.2 Allergy status to sulfonamides; Z79.899 Other long term (current) drug therapy; W26.0XXA Contact with knife, initial encounter; Y93.89 Activity, other specified; Y92.89 Other specified places as the place of occurrence of the external cause; Y99.8 Other external cause status
CPT/HCPCS: 90471; 90715; 99283; A6449

== ENCOUNTER 2023-03-30 10:29 | Emergency (ER) | payer MEDICAID ==
[~2023-03-30] VITALS: Ht 161.3 cm; Wt 119.0 kg
[2023-03-30 10:33] VITALS: BP 136/104
[2023-03-30] MEDS ORDERED: HYDROcodone/acetaminophen 10/325mg tab PO STA ×2 (10:36→10:50)
--- NOTE | 2023-03-30 11:04 | NUR ---
RIGHT ARM SLING PLACED ON PATIENT'S RIGHT ARM
== END 2023-03-30 11:22 | disposition home or self-care (01) ==
LOC: ER 10:30
DX: S46.911A Strain of unspecified muscle, fascia and tendon at shoulder and upper arm level, right arm, initial encounter (principal); Z90.49 Acquired absence of other specified parts of digestive tract; Z87.19 Personal history of other diseases of the digestive system; Z88.1 Allergy status to other antibiotic agents; Z88.8 Allergy status to other drugs, medicaments and biological substances; X50.0XXA Overexertion from strenuous movement or load, initial encounter; Y93.89 Activity, other specified; Y92.89 Other specified places as the place of occurrence of the external cause; Y99.0 Civilian activity done for income or pay
CPT/HCPCS: 73030; 99283

== ENCOUNTER 2023-11-02 16:43 | Emergency (ER) | payer MEDICAID ==
[~2023-11-02] VITALS: Ht 160 cm; Wt 113.6 kg
[2023-11-02] MEDS ORDERED: OXYC-145 PO (17:43)
[2023-11-02] MEDS: oxyCODONE/APAP 5-325mg tablet PO ONE (17:48)
[2023-11-02] MEDS: ketorolac trometh. 30mg/ml inj. IM ONE (17:49)
[2023-11-02 18:04] VITALS: BP 156/85; PULSE 92; RESP 16; TEMP 98; O2SAT 95
== END 2023-11-02 18:42 | disposition home or self-care (01) ==
LOC: ER 16:44
DX: S82.51XA Displaced fracture of medial malleolus of right tibia, initial encounter for closed fracture (principal); Z91.041 Radiographic dye allergy status; Z88.2 Allergy status to sulfonamides; Z79.899 Other long term (current) drug therapy; Z90.49 Acquired absence of other specified parts of digestive tract; X50.1XXA Overexertion from prolonged static or awkward postures, initial encounter; Y93.89 Activity, other specified; Y92.89 Other specified places as the place of occurrence of the external cause; Y99.8 Other external cause status
CPT/HCPCS: 73610; 73630; 96372; 99284; J1885; L4360

== ENCOUNTER 2025-03-17 16:23 | Emergency (ER) | payer MEDICAID ==
[~2025-03-17] VITALS: Ht 167.6 cm; Wt 97.4 kg
[~2025-03-17 16:23] MED LIST changes: +OXYC-145 PO
[2025-03-17 16:24] VITALS: BP 141/84; PULSE 115; RESP 18; O2SAT 99
--- NOTE | 2025-03-17 16:44 | Physician Documentation ---
History of Present Illness ~ Chief Complaint: Vaginal pain Stated Complaint: "A LOT OF PRESSURE DOWN THERE" Time Seen by MD: 16:28 Primary Medical Doctor: Dr Buckner HPI 44-year-old female presents to the ED with a complaint of acute onset pelvic pain especially when coughing.. She has a history of endometrial and cervical cancer.. Says recently she had an ultrasound which came back negative. She has concern that she also has had blood in her urine over the last month.. Denies any fevers. Day of Onset: Mar 17, 2025 Medication Reconciliation Allergies: Coded Allergies: erythromycin base (Verified Allergy, Unknown, SWELL UP IN MOUTH, 03/17/25) THROAT CLOSES sulfamethoxazole (Verified Allergy, Unknown, 03/17/25) trimethoprim (Verified Allergy, Unknown, 03/17/25) Scheduled PRN Oxycodone HCl/Acetaminophen (Percocet 5-325 mg Tablet), 1 TAB PO TID PRN PRN for fracture Miscellaneous Medications Home Med List (No Home Medications), (Reported) Past Medical History Past Medical History: Cholelithiasis Past Surgical History: cholecystectomy Alcohol Use: None Drug Use: none Lives In: Home Review of Systems All Other Systems at this time: Reviewed and Negative ROS As stated above in the HPI, otherwise all systems are reviewed and negative. Physical Exam Vital Signs: Temperature: 97.5, Source: Temporal, Heart Rate: 115, Respiratory Rate: 18, BP: 141/84, Pulse Oximetry: 99, Weight: 97.400 Oxygen Flow Rate: 0 Physical Exam General: Alert, no apparent distress. Respiratory: Lungs clear, no respiratory distress. Cardiovascular: Regular rate and rhythm, no murmurs. Gastrointestinal: Soft nontender bowel sounds present in all four quadrants, Genitourinary: Pelvic pain bilaterally Neurologic: Oriented x4. Psychiatric: Normal mood and affect. Skin: Normal color, warm and dry. No edema, no ecchymosis. Progress Results/Orders Results/Orders Orders - TRELL DENNY NP Ct Abdomen Pelvis (03/17/25 18:14) Completed Orders - TRELL DENNY BOOKKEEPING ASSISTANT Hcg, Ur Ql (03/17/25 16:39) Cbc/Diff (03/17/25 16:39) BMP (03/17/25 16:39) Lipase (03/17/25 16:39) CMP (03/17/25 16:39) Ct Abdomen Pelvis (03/17/25 18:14) Iohexol 300mg/Ml 100ml Inj. (Omnipaque-3 (03/17/25 17:50) Ua W/Microscopic, Cult If Ind (03/17/25 17:07) Magnesium Citrate Oral Milena. (Magnesium C (03/17/25 18:50) Vital Signs 03/17/25 16:24 Temp 97.5 Pulse 115 Resp 18 B/P (MAP) 141/84 Pulse Ox 99 O2 Flow Rate 0 Laboratory Tests Test 03/17/25 16:56 03/17/25 17:07 White Blood Count 14.3 H Red Blood Count 4.61 Hemoglobin 14.7 Hematocrit 42.7 Mean Corpuscular Volume 92.4 Mean Corpuscular Hemoglobin 31.9 H Mean Corpuscular Hemoglobin Concent 34.6 Red Cell Distribution Width 13.4 Platelet Count 310 Mean Platelet Volume 7.9 Neutrophils (%) (Auto) 65.9 Lymphocytes (%) (Auto) 28.1 Monocytes (%) (Auto) 4.7 Eosinophils (%) (Auto) 0.9 Basophils (%) (Auto) 0.4 Neutrophils # (Auto) 9.5 H Lymphocytes # (Auto) 4.0 Monocytes # (Auto) 0.7 Eosinophils # (Auto) 0.1 Basophils # (Auto) 0.1 CBC Comment Sodium Level 136 Potassium Level 3.7 Chloride Level 103 Carbon Dioxide Level 28.0 Anion Gap 5 L Blood Urea Nitrogen 10 Creatinine 0.82 Estimated GFR/1.73 m2 76 BUN/Creatinine Ratio 12.2 Glucose Level 90 Calcium Level 8.9 Total Bilirubin 0.4 Aspartate Amino Transf (AST/SGOT) 15 Alanine Aminotransferase (ALT/SGPT) 23 Alkaline Phosphatase 96 Total Protein 7.7 Albumin 3.7 Globulin 4.0 Albumin/Globulin Ratio 0.9 L Lipase 78 H Chemistry Comments Urine Specimen Description Voided Urine Color Yellow Urine Clarity Clear Urine pH 6.0 Urine Specific [place] >=1.030 Urine Protein Negative Urine Glucose (UA) Negative Urine Ketones Trace H Urine Occult Blood Moderate H Urine Nitrite Negative Urine Bilirubin Negative Urine Urobilinogen 0.2 Urine Leukocyte Esterase Negative Urine RBC 10-20 Urine WBC 0-4 Urine Squamous Epithelial Cells Many Urine Transitional Epithelial Cells Few Urine Bacteria 1+ Urine Mucus Moderate Urine Culture Indicated Not ind Volume Urine Centrifuged 10 ml Urine HCG, Qualitative Negative Urine Comment Medical Decision Making Findings A 44-year-old female initially was concerned about the potential complications related to cancer. buddy Seo upon my initial assessment I was more concerned about a potential hernia. Per her CT ,my concerns were affirmed. She has a small umbilical fat containing hernia which is likely causing her pain when coughing or lifting things. She also had significant stool burden without any signs of SBO. This patient is being followed in the outpatient setting and I instructed her to follow up with primary care and obtain a referral for General surgery to have her umbilical hernia repaired Urinary Diff Dx:Considerations: Include: AAA, , Aortic dissection, Appendicitis, Bowel obstruction, Cholelithiasis, Choleangitis, DJD, Ectopic pr egnancy, Hepatitis, HNP, Impaction, Intrauterine , Musculoskeletal pain, Ovarian torsion, Pancreatitis, PID, Post-Op complication, Pyelonephritis, Renal failure, Strain, Urinary Obstruction, Urolithiasis, Urinary retention, UTI, Vaginitis, Other Departure Disposition: 01 HOME / SELF CARE / HOMELESS Impression: Primary Impression: Umbilical hernia Additional Impression: Constipation Referrals: NO PRIMARY CARE PROVIDER (PCP) Signature Scribe Signature: . Attestation: Scribed for Trell Denny Freelance Court Reporter by Trell Hussein NP . 03/17/25 16:43 TRELL DENNY NP Mar 17, 2025 16:44
[2025-03-17 17:15] LABS: BASOPHILS # (AUTO) 0.1 X10'3 (0-0.2); BASOPHILS % (AUTO) 0.4 % (0-1); EOSINOPHILS # (AUTO) 0.1 X10'3 (0-0.9); EOSINOPHILS % (AUTO) 0.9 % (0-6); HEMATOCRIT 42.7 % (35.0-45.0); HEMOGLOBIN 14.7 g/dl (12.0-16.0); LYMPHOCYTES % (AUTO) 28.1 % (21-51); MEAN CORPUSCULAR HEMOGLOBIN 31.9 PG (27.0-31.0); MEAN CORPUSCULAR HGB CONC 34.6 g/dL (33.0-36.5); MEAN CORPUSCULAR VOLUME 92.4 FL (78-98); MEAN PLATELET VOLUME 7.9 FL (7.4-10.4); MONOCYTES # (AUTO) 0.7 X10'3 (0-0.9); MONOCYTES % (AUTO) 4.7 % (2-12); NEUTROPHILS # (AUTO) 9.5 X10'3 (1.8-7.7); NEUTROPHILS % (AUTO) 65.9 % (42-75); PLATELET COUNT 310 X10'3 (140-440); RED BLOOD COUNT 4.61 X10'6 (4.20-5.60); RED CELL DISTRIBUTION WIDTH 13.4 % (11.5-14.5); WHITE BLOOD COUNT 14.3 X10'3 (4.5-11.0)
[2025-03-17 17:44] LABS: ALANINE AMINOTRANSFERASE 23 U/L (12-78); ALBUMIN 3.7 G/DL (3.4-5.0); ALBUMIN/GLOBULIN RATIO 0.9 (1.1-1.5); ALKALINE PHOSPHATASE 96 IU/L (46-116); ANION GAP 5 (8-16); ASPARTATE AMINO TRANSFERASE 15 U/L (10-37); BILIRUBIN,TOTAL 0.4 MG/DL (0.1-1.0); BLOOD UREA NITROGEN 10 MG/DL (7-18); BUN/CREATININE RATIO 12.2 (10.0-20.0); CALCIUM 8.9 MG/DL (8.5-10.1); CHLORIDE 103 MMOL/L (99-107); CREATININE 0.82 MG/DL (0.40-0.90); GLUCOSE 90 MG/DL (70-104); LIPASE 78 U/L (16-77); POTASSIUM 3.7 MMOL/L (3.5-5.1); SODIUM 136 MMOL/L (135-145); TOTAL PROTEIN 7.7 G/DL (6.4-8.2); eCRCL 84 ML/MIN; eGFR 76 ML/MIN
[2025-03-17 17:50] LABS: BILIRUBIN,URINE NEGATIVE (Neg); CLARITY,URINE CLEAR (Clear); COLOR,URINE YELLOW (Yellow); GLUCOSE, URINE NEGATIVE (Neg); KETONES,URINE TRACE mg/dl (Neg); LEUKOCYTE ESTERASE ,URINE NEGATIVE (Neg); NITRITES, URINE NEGATIVE (Neg); OCCULT BLOOD,URINE MODERATE (Neg); PROTEIN,URINE NEGATIVE (Neg); UROBILINOGEN,URINE 0.2 E.U/dL (0.2-1.0)
[2025-03-17] MEDS ORDERED: iohexol 300mg/ml 100ml inj. ONE (17:50)
[2025-03-17 17:52] LABS: UA COLLECTION TYPE VOIDED; URINE HCG NEGATIVE (NEG)
[2025-03-17 17:56] LABS: BACTERIA,URINE 1+ /HPF (Neg); SQUAMOUS EPITHELIAL CELL,UR MANY /LPF (FEW); WBC,URINE 0-4 /HPF (0-4)
[2025-03-17 17:57] LABS: MUCUS STRANDS MODERATE /LPF (Neg); TRANSITIONAL EPI CELLS,URINE FEW /HPF
--- NOTE | 2025-03-17 18:36 | RADIOLOGY REPORT ---
EXAM: CT Abdomen and Pelvis With Intravenous Contrast CLINICAL INDICATION: pevlic pain w/rectal pain- history of cervical cancer/ TECHNIQUE: Axial computed tomography images of the abdomen and pelvis with intravenous contrast. is CT exam was performed using one or more of the following dose reduction techniques: automated exp osure control, adjustment of the mA and/or kV according to patient size, and/or use of iterative danica nstruction technique. CONTRAST: COMPARISON: No relevant prior studies available. FINDINGS: LUNG BASES: Unremarkable. No mass. No consolidation. ABDOMEN: LIVER: Hepatomegaly with fatty infiltration. GALLBLADDER AND BILE DUCTS: Unremarkable. No calcified stones. No ductal dilation. PANCREAS: Unremarkable. No mass. No ductal dilation. SPLEEN: Unremarkable. No splenomegaly. ADRENALS: Unremarkable. No mass. KIDNEYS AND URETERS: Unremarkable. No solid mass. No hydronephrosis. STOMACH AND BOWEL: Fecal retention in the colon consistent with constipation. No obstruction. No mucosal thickening. PELVIS: APPENDIX: No findings to suggest acute appendicitis. BLADDER: Unremarkable. No mass. REPRODUCTIVE: Unremarkable as visualized. SUBPERITONEAL SPACE: Unremarkable. No perirectal fluid collection or abscess. ABDOMEN and PELVIS: INTRAPERITONEAL SPACE: Unremarkable. No free air. No significant fluid collection. BONES/JOINTS: No acute fracture. No dislocation. SOFT TISSUES: Umbilical hernia containing fat. VASCULATURE: Unremarkable. No abdominal aortic aneurysm. LYMPH NODES: Unremarkable. No enlarged lymph nodes. OTHER FINDINGS: Comparison None. . IMPRESSION: 1. No perirectal fluid collection or abscess. 2. Hepatomegaly with fatty infiltration. 3. Fecal retention in the colon consistent with constipation. 4. Umbilical hernia containing fat. HS:Y
[2025-03-17 19:00] VITALS: TEMP 97.5
[2025-03-17] MEDS: magnesium citrate 296ml oral solution PO ONE (19:01)
== END 2025-03-17 19:03 | disposition home or self-care (01) ==
LOC: ER 16:24
DX: K42.9 Umbilical hernia without obstruction or gangrene (principal); K59.00 Constipation, unspecified; R05.9 Cough, unspecified; Z88.1 Allergy status to other antibiotic agents; Z88.2 Allergy status to sulfonamides; Z90.49 Acquired absence of other specified parts of digestive tract
CPT/HCPCS: 36415; 74177; 80053; 81001; 81025; 83690; 85025; 99285; Q9967